=== PATIENT | female | born 1975 | race American Indian/Alaskan Native ===

== ENCOUNTER 2017-02-19 15:03 | Outpatient (CLI) | payer MEDICAID | END 2017-02-19 19:28 | disposition home or self-care (01) | LOC: LAB 15:03 → TRG 18:31 → LAB 19:28 | PROVIDERS: ATTEND Obstetrics & Gynecology | DX: O36.0130 Maternal care for anti-D [Rh] antibodies, third trimester, not applicable or unspecified (principal); Z3A.32 32 weeks gestation of pregnancy | CPT/HCPCS: 86850; 86900; 86901; 96372; J2790 ==

== ENCOUNTER 2019-03-27 12:09 | Emergency (ER) | payer MEDICAID ==
--- NOTE | 2019-03-27 12:57 | Emergency Department Report ---
Blank Doc - Documentation Documentation: 43 y o female presents with throat rodriguez x 1 week states throat pain has worsened ACC eval rapid strep
[2019-03-27 13:37] VITALS: BP 136/82
--- NOTE | 2019-03-27 15:28 | Emergency Department Report ---
Minor Respiratory (Peds) - HPI Chief Complaint: Sore Throat Stated Complaint: SORE THROAT Time Seen by Provider: 03/27/19 12:52 ED Review of Systems ROS: Stated complaint: SORE THROAT Other details as noted in HPI Peds Minor Resp. exam - Exam General: Vital signs noted. No distress. Alert and acting appropriately. Neurologic: Alert and oriented, no deficits. Musculoskeletal: Unremarkable. ED Course Vital Signs 03/27/19 13:34 Temperature 99.0 F Pulse Rate 74 Respiratory 18 Rate Blood Pressure 136/82 O2 Sat by Pulse 98 Oximetry Critical care attestation.: If time is entered above; I have spent that time in minutes in the direct care of this critically ill patient, excluding procedure time. ED Disposition Condition: Stable Referrals: NOÉ MAHMOOD MD [Primary Care Provider] - 3-5 Days
--- NOTE | 2019-03-27 15:29 | Emergency Department Report ---
Minor Respiratory - HPI Chief Complaint: Sore Throat Stated Complaint: SORE THROAT Time Seen by Provider: 03/27/19 12:52 Duration: weeks Pain Location: Throat Severity: severe (10/10) Minor Respiratory: Yes Rhinorrhea, Yes Sore Throat, Yes Able to Tolerate Fluids, Yes Cough, Yes Sick Contacts, No Ear Pain, No Hemoptysis, No Chest Pain, No Shortness of Breath, No Fever (chills) Other History: This is a 43-year-old female here with her children report that she has been having upper respiratory symptoms for 2 weeks with chills. Denies any shortness of breath or chest pain. Reports sore throat 10/10 worse with swallowing. [id number] medication did not help. Reports cough and and denies fever. No medication taken prior to coming to the emergency room. She denies any medical problems ED Review of Systems ROS: Stated complaint: SORE THROAT Other details as noted in HPI Constitutional: chills. denies: fever ENT: throat pain, congestion. denies: ear pain Respiratory: cough. denies: shortness of breath, SOB with exertion, SOB at rest, stridor, wheezing Cardiovascular: denies: chest pain, edema, syncope Gastrointestinal: denies: abdominal pain, nausea, vomiting Genitourinary: denies: dysuria Musculoskeletal: denies: back pain, joint swelling, arthralgia Skin: denies: rash Neurological: denies: headache ED Past Medical Hx - Past Medical History Previous Medical History?: No - Surgical History Past Surgical History?: No - Family History Family history: hypertension - Social History Smoking Status: Never Smoker Substance Use Type: None - Medications Home Medications: Home Medications Medication Instructions Recorded Confirmed Last Taken Type Amoxicillin/K Clav Tab [Augmentin 1 tab PO Q12HR #20 tab 03/27/19 Unknown Rx 875MG TAB] Ibuprofen [Motrin] 800 mg PO Q8HR PRN #12 tablet 03/27/19 Unknown Rx methylPREDNISolone [Medrol 4MG 4 mg PO QDAY 6 Days #1 tab.ds.pk 03/27/19 Unknown Rx DOSEPAK (21 tabs)] Minor Respiratory Exam - Exam General: Vital signs noted. No distress. Alert and acting appropriately. This is a 43-year-old female well-nourished well-developed in no acute distress HEENT: Yes Pharyngeal Erythema (mild), Yes Moist Mucous Membranes, Yes Rhinorrhea (nasal congestion), No Pharyngeal Exudates, No Conjuctival Injection, No Frontal Tenderness, No Maxillary Tenderness Ear: Neither TM Bulge (congested), Neither TM Erythema, Neither EAC Pain, Neither EAC Discharge Neck: Yes Supple (full range of motion), No Adenopathy Lungs: Yes Good Air Exchange, Yes Cough (dry cough), No Wheezes, No Ronchi, No Stridor, No Labored Respirations, No Retractions, No Use of Accessory Muscles, No Other Abnormal Lung Sounds Heart: Yes Regular, No Murmur Abdomen: Yes Normal Bowel Sounds, No Tenderness, No Peritoneal Signs Skin: No Rash, No Edema Neurologic: Alert and oriented 3, no deficits. Musculoskeletal: Unremarkable. Normal exam ED Course Vital Signs 03/27/19 13:34 Temperature 99.0 F Pulse Rate 74 Respiratory 18 Rate Blood Pressure 136/82 O2 Sat by Pulse 98 Oximetry - Reevaluation(s) Reevaluation #1: 03/27/19 15:40 Patient remained stable throughout ED course ED Medical Decision Making - Medical Decision Making 43-year-old patient here complaining of Quan symptom is sore throat and that she has been sick for 2 weeks. Physical exam is normal except she has mild erythema to her throat with nasal congestion and ear congestion. Lungs sounds are clear with no difficulty breathing. I discussed diagnosis and treatment plan with patient and she has acute pharyngitis and upper respiratory infection with cough and congestion. I discussed that she will need to follow up with her primary care physician in 3-5 days or she gets worse to return to the emergency room. Patient discharged home with prescription for Augmentin, Medrol Dosepak and Motrin Critical care attestation.: If time is entered above; I have spent that time in minutes in the direct care of this critically ill patient, excluding procedure time. ED Disposition Clinical Impression: URI with cough and congestion Pharyngitis, acute Qualifiers: Pharyngitis/tonsillitis etiology: unspecified etiology Qualified Code(s): J02.9 - Acute pharyngitis, unspecified Disposition: TO HOME OR SELFCARE Is pt being admited?: No Does the pt Need Aspirin: No Condition: Stable Instructions: Upper Respiratory Infection (ED), Pharyngitis (ED) Additional Instructions: Please follow up with a primary care physician in 2-3 days. Take medication as prescribed If he condition worsens return to the emergency room Gargle warm salt water and take Motrin as prescribed. Take medication with food as it can cause irritation to stomach lining Referrals: NOÉ MAHMOOD MD [Primary Care Provider] - 2-3 Days Forms: Work/School Release Form(ED)
== END 2019-03-27 16:45 | disposition home or self-care (01) ==
LOC: ED 12:09
DX: J06.9 Acute upper respiratory infection, unspecified (principal); J02.9 Acute pharyngitis, unspecified
CPT/HCPCS: 99282